=== PATIENT | female | born 1950 | race Caucasian/White ===

== ENCOUNTER 2019-01-22 09:07 | Emergency (ER) | payer MEDICARE, OTHER ==
[~2019-01-22] VITALS: Ht 157.5 cm; Wt 58.9 kg
[2019-01-22] MEDS ORDERED: ROCURONIUM BROMIDE 10 MG/ML 5 ML VIAL IVP ONE (09:11)
[2019-01-22] MEDS ORDERED: VECURONIUM BROMIDE 10 MG/VIAL IVP ONE (09:11)
[2019-01-22] MEDS ORDERED: OXYGEN THERAPY IH SCH (09:15)
[2019-01-22 09:45] LABS: BASOPHILS % (AUTO) 0.4 % (0.0-2.0); EOSINOPHILS % (AUTO) 0 % (1.0-6.0); HEMATOCRIT 33.5 % (36-46); HEMOGLOBIN 10.8 g/dL (12.0-16.0); LYMPHOCYTES # (AUTO) 0.5 K/uL (1.0-4.8); LYMPHOCYTES % (AUTO) 7.7 % (22.0-44.0); MEAN CORPUSCULAR HEMOGLOBIN 29.4 pg (26.0-34.0); MEAN CORPUSCULAR HGB CONC 32.1 G/dL (31.0-37.0); MEAN CORPUSCULAR VOLUME 92 fL (80-100); MONOCYTES # (AUTO) 0.2 K/uL (0.1-1.0); MONOCYTES % (AUTO) 3.3 % (2.0-9.0); NEUTROPHILS % (AUTO) 88.6 % (40.0-70.0); PLATELET COUNT (AUTO) 391 K/uL (150-450); RED BLOOD CELL COUNT(AUTO) 3.66 MIL/uL (4.00-5.20); RED CELL DISTRIBUTION WIDTH 14.4 % (11.5-14.5)
[2019-01-22 09:55] LABS: INR 1.1 (0.9-1.1); PROTHROMBIN TIME 11.2 SEC (9.4-11.6)
[2019-01-22] MEDS ORDERED: SODIUM CHLORIDE 0.9% 2,000 ML IV ONE (10:00)
[2019-01-22 10:01] LABS: ABG BASE EXCESS 2.3 mmol/L (-2.0-3.0); ABG CARBOXYHEMOGLOBIN 0.1 % (0.0-1.5); ABG HCO3 25.6 mmol/L (22.0-26.0); ABG METHEMOGLOBIN 0.1 % (0.0-1.5); ABG OXYGEN CONTENT 16.3 mL/dL (15.0-23.0); ABG OXYGEN SATURATION 98.3 % (95.0-98.0); ABG OXYHEMOGLOBIN 98.1 % (94.0-100.0); ABG PCO2 61 mmHg (35-45); ABG PH 7.294 (7.35-7.450); ABG TOTAL HEMOGLOBIN 11.6 G/dL (12.0-18.0); PO2, ARTERIAL BG 145.3 mmHg (79.0-87.0); SOURCE, BLOOD GAS ARTERIAL; TEMPERATURE, FAHRENHEIT, BG 99.9 FAHREN (96.0-98.6)
[2019-01-22 10:02] LABS: O2 DEVICE,BLOOD GAS VENTILATOR (ROOM AIR); PEEP,BG 5 cm H2O; SITE, BLOOD GAS RT RADIAL; VT, ABG 450 ml
[2019-01-22 10:05] LABS: LACTIC ACID 3.2 mmol/L (0.4-2.0)
[2019-01-22 10:06] LABS: ANION GAP 8 mmol/L (8-16); B-TYPE NATRIURETIC PEPTIDE 949 pg/mL (0-100); CALCIUM, TOTAL 9.2 mg/dL (8.8-10.5); CARBON DIOXIDE 28 mmol/L (22-29); CHLORIDE 102 mmol/L (98-107); CREATININE 1.53 mg/dL (0.60-1.30); GLOMERULAR FILTR. RATE CALC 34 mL/min (>60); GLUCOSE,RANDOM 190 mg/dL (70-110); POTASSIUM 3.6 mmol/L (3.5-5.1); SODIUM SERUM 138 mmol/L (136-145); UREA NITROGEN, BLOOD 31 mg/dL (7-18)
[2019-01-22 10:10] LABS: ALANINE AMINOTRANSFERASE 55 U/L (12-78); ALBUMIN 2.3 g/dL (3.4-5.0); ALKALINE PHOSPHATASE 105 U/L (46-116); ASPARTATE AMINOTRANSFERASE 80 U/L (15-37); BILIRUBIN,TOTAL 0.3 mg/dL (0.1-1.0); LIPASE 62 U/L (73-393); TOTAL PROTEIN, SERUM 6.7 g/dL (6.4-8.2)
[2019-01-22 10:24] LABS: GLUCOSE,POINT OF CARE 136 MG/DL (70-110)
[2019-01-22] MEDS ORDERED: PIPERACILLIN SODIUM/TAZOBACTAM 4.5 GM in DEXTROSE 5%-WATER 100 ML IV ONE (10:45)
[2019-01-22] MEDS: VECURONIUM BROMIDE 10 MG/VIAL IVP ONE ×2 (10:58→11:30)
[2019-01-22] MEDS ORDERED: CEPH500 GT (12:14)
[2019-01-22] MEDS ORDERED: LITH8SOL6 GT (12:14)
[2019-01-22] MEDS ORDERED: KCL10IV GT (12:14)
[2019-01-22] MEDS ORDERED: TRAZ-219 GT (12:14)
[2019-01-22] MEDS ORDERED: ASPI81 GT (12:14)
[2019-01-22] MEDS ORDERED: LEVO125 GT (12:14)
[2019-01-22] MEDS ORDERED: ONDA4 GT (12:14)
[2019-01-22] MEDS ORDERED: CLON.2 GT (12:14)
[2019-01-22] MEDS ORDERED: FAMO20 GT (12:14)
[2019-01-22] MEDS ORDERED: AMOX1TAB16 GT (12:14)
[2019-01-22] MEDS ORDERED: GABA250S2 GT (12:14)
[2019-01-22] MEDS ORDERED: POLY17PO GT (12:14)
[2019-01-22] MEDS ORDERED: VENL-193 GT (12:14)
[2019-01-22] MEDS ORDERED: LACT1CAP62 GT (12:14)
[2019-01-22 14:10] VITALS: BP 87/48
[2019-01-22] MEDS ORDERED: MORPHINE SULFATE 10 MG/ML SYRINGE IVP ONE (14:45)
== END 2019-01-22 19:25 | disposition expired ==
LOC: EMS 09:10
DX: J96.90 Respiratory failure, unspecified, unspecified whether with hypoxia or hypercapnia (principal); I10 Essential (primary) hypertension; F31.9 Bipolar disorder, unspecified
CPT/HCPCS: 31500; 36415; 36600; 51702; 70450; 70490; 71045; 80053; 80178; 82805; 82962; 83605; 83690; 83880; 84484; 85025; 85610; 85730; 87040; 87077; 87186; 87205; 93005; 96365; 96366; 96374; 99291; 99292; J2270; J2543; J3490 ×2; J7030; J7060; 94002